=== PATIENT | female | born 1995 | race Caucasian/White ===

== ENCOUNTER 2019-12-20 11:23 | Emergency (ER) | payer OTHER ==
[~2019-12-20] VITALS: Ht 162.6 cm; Wt 131.5 kg
[2019-12-20 11:34] VITALS: Ht 162.6 cm; Wt 131.5 kg
[2019-12-20 13:52] VITALS: BP 111/53
== END 2019-12-20 13:52 | disposition home or self-care (01) ==
LOC: ED 11:23
DX: J45.909 Unspecified asthma, uncomplicated (principal); J84.10 Pulmonary fibrosis, unspecified; G47.30 Sleep apnea, unspecified; Z98.890 Other specified postprocedural states
CPT/HCPCS: J2930